=== PATIENT | male | born 1955 | race Caucasian/White ===

== ENCOUNTER 2023-03-29 14:52 | Inpatient (IN) | payer OTHER, SELFPAY ==
[2023-03-29 14:56] VITALS: BP 135/87; PULSE 66; RESP 16; TEMP 36.4; O2SAT 99; BMI 24.3
[2023-03-29 15:52] LABS: Basophils # 0.1 10^3/uL (0.0-0.1); Basophils % 0.9 %; Eosinophils # 0.4 10^3/uL (0.0-0.8); Eosinophils % 6.2 %; Hematocrit 36.5 % (37-53); Lymphocytes # 1.8 10^3/uL (0.8-4.8); Lymphocytes % 26.9 %; Mean Corpuscular HGB Conc 33.4 g/dL (30-55); Mean Corpuscular Volume 92.6 fl (82-101); Mean Platelet Volume 10.2 fL (7.4-10.4); Monocytes # 0.5 10^3/uL (0.2-0.9); Monocytes % 7.7 %; Neutrophils # 3.85 10^3/uL (1.8-7.7); Neutrophils % 57.3 %; Nucleated Red Blood Cells % 0 %; Platelet Count 311 10^3/cmm (157-399); Red Blood Count 3.94 10^6/uL (3.85-5.65); Red Cell Distribution Width 12.5 % (12.1-15.1); White Blood Count 6.73 10^3/uL (3.29-11.43)
[2023-03-29 16:05] LABS: Anion Gap 12.9 (5-19); Blood Urea Nitrogen 16 mg/dL (8-23); Calcium 9.1 mg/dL (8.5-10.5); Carbon Dioxide 24 mmol/L (22-29); Chloride 109 mmol/L (98-107); Creatinine Clr Calc Pharmacy 66.9161; Glomerular Filtration Rate 66.4 mL/min (90-130); Glucose 99 mg/dL (65-115); Osmolality Calculated 295 mOsm/kg (285-295); Potassium 3.9 mmol/L (3.5-5.1); Sodium 142 mmol/L (136-145)
--- NOTE | 2023-03-29 16:36 | USR_ITS ---
PROCEDURE INFORMATION: Exam: US Duplex Right Lower Extremity Veins, Limited Exam date and time: 03/29/2023 4:59 PM Age: 68 years old Clinical indication: Other: Redness; Additional info: Redness/swelling/infection, also eval for fluid collection under anterior tibial wound TECHNIQUE: Imaging protocol: Real-time duplex ultrasound of the right extremity with 2-D latif scale, color Doppler flow and spectral waveform analysis including responses to compression and other maneuvers (when performed) with image documentation. Limited exam was focused on the right lower extremity veins. COMPARISON: No relevant prior studies available. FINDINGS: Right deep veins: Unremarkable. The common femoral, femoral and popliteal veins as well as the visualized deep veins of the lower leg are patent without thrombus. Normal Doppler waveforms. Normal compressibility and/or augmentation response. Superficial veins: Unremarkable. Saphenofemoral junction is patent without thrombus. Soft tissues: The area of the anterior tibial wound is unremarkable demonstrating no fluid collection. US/[place] [id number] IMPRESSION: 1. No evidence of deep vein thrombosis. 2. No fluid collection in the anterior tibial region.
--- NOTE | 2023-03-29 16:36 | XRR_ITS ---
PROCEDURE INFORMATION: Exam: XR Right Tibia and Fibula Exam date and time: 03/29/2023 5:19 PM Age: 68 years old Clinical indication: Cellulitis; Lower leg; Right; Additional info: Poss injury/anterior infection TECHNIQUE: Imaging protocol: Radiologic exam of the right tibia and fibula. Views: 2 views. COMPARISON: [place] [id number] 03/29/2023 4:59 PM FINDINGS: Bones/joints: Normal. Soft tissues: Normal. XR/XR tibia fibula RT 2V [id number] IMPRESSION: No acute findings.
--- NOTE | 2023-03-29 16:37 | W.ED.EXTPRO ---
Documented by User: VELVET Hobson 03/30/23 09:01 HPI - Extremity Problem General: Chief complaint: Extremity Injury, Lower Stated complaint: cellulitis right lower leg Time Seen by Provider: 03/29/23 15:54 Source: patient and family (daughter) Mode of arrival: wheelchair Limitations: no limitations History of Present Illness: Patient is a nice 68-year-old male who presents to ED today along with his daughter for concerns of cellulitis to his right lower extremity. Daughter states patient lives at [facility]. She states patient was placed on doxycycline 7 days ago (written for a 10-day course) and states since that time leg has continued to worsen. Patient is reporting fevers although he was afebrile upon arrival to the emergency department. Daughter states he has a wound to his anterior right lower leg that she believes he sustained around the time that the infection started. Daughter is concerned this could be a spider bite although thinks patient could have possibly ran into something. Patient himself seems to have some mild baseline dementia. Daughter states he is at his mental baseline. MD Complaint: extremity pain and extremity swelling Onset (ago): day(s) Pain Consistency: constant Location: right and lower extremity Radiation: none Relieving factors: nothing Exacerbating factors: nothing Associated symptoms: Reports fever(s); Deny chest pain Review of Systems Const: Reports: fever(s); Denies: chills, body aches, fatigue or malaise Card: Denies: chest pain Resp: Denies: dyspnea Musc: Reports: extremity pain and extremity swelling; Denies: neck pain, back pain, joint pain or joint swelling Skin/Breast: Reports: other (wound to R anterior leg) Neuro: Denies: numbness in extremities or sensory changes [facility] ED PFSH: Medical History (Updated 03/29/23 @ 17:37 by Og Sawyer MD) History of seizures Surgical History (Updated 03/29/23 @ 17:37 by Og Sawyer MD) History of cerebral aneurysm repair Family History (Updated 03/29/23 @ 17:38 by Og Sawyer MD) Other No pertinent family history Social History (Updated 03/29/23 @ 17:38 by Og Sawyer MD) Smoking and tobacco/nicotine status: former use of tobacco/nicotine Alcohol intake: never Substance/Drug Use: former Former substance use details: Marijuana Physical Exam Const: COMMON NORMALS: no acute distress, average body habitus, no limitations, healthy appearing, alert and well nourished Resp: COMMON NORMALS: normal respiratory effort and clear to auscultation bilaterally AUSCULTATION: clear to auscultation bilaterally Cardio: COMMON NORMALS: regular rate and regular rhythm RATE: regular rate RHYTHM: regular rhythm Extremity: COMMON NORMALS: full ROM and capillary refill normal GENERAL: Yes normal exam except as noted RIGHT LOWER EXTREMITY: Yes lower leg OTHER: Patient has extensive erythema, warmth, and pitting edema affecting R lower extremity. Clinical findings start just distal to the knee and just proximal to the ankle. Neither joint is clinically affected. Patient has a 1.5-2.0 inch wound to his mid anterior tibia that is hemorrhagic/ulcerative in appearance. There is no active drainage or odor noted. There is no lymphangitic streaking to the extremity. DP/PT pulses normal with normal cap refill. Sensation appears intact. Neuro: COMMON NORMALS: moves all extremities, no focal motor deficits and no sensory deficits noted SENSORIUM/ORIENTATION: Yes alert Course ED course: Care will be transferred to Dr. Diaz as he will be an admit for failed outpatient therapy of cellulitis. ES Vital Signs: Vital signs: Vital Signs Temperature 97.5 F L 03/30/23 08:00 Pulse Rate 74 03/30/23 08:00 Respiratory Rate 22 H 03/30/23 08:00 Blood Pressure 132/85 03/30/23 08:00 Pulse Oximetry 97 03/30/23 08:00 Oxygen Delivery Me thod Room Air 03/30/23 08:00 MDM - Extremity (Nontraumatic) Lab Data 03/30/23 05:32 03/29/23 15:42 Radiology Impressions Tibia/Fibula X-Ray 03/29/23 16:36 IMPRESSION: No acute findings. Venous Duplex 03/29/23 16:36 IMPRESSION: 1. No evidence of deep vein thrombosis. 2. No fluid collection in the anterior tibial region. Laboratory Results WBC 6.73 10^3/uL (3.29-11.43) 03/29/23 15:42 RBC 3.94 10^6/uL (3.85-5.65) 03/29/23 15:42 Hgb 12.20 g/dL (11.27-16.99) 03/29/23 15:42 Hct 36.5 % (37-53) L 03/29/23 15:42 MCV 92.6 fl (82-101) 03/29/23 15:42 MCH 31.0 pg (27-33) 03/29/23 15:42 MCHC 33.4 g/dL (30-55) 03/29/23 15:42 RDW 12.5 % (12.1-15.1) 03/29/23 15:42 Plt Count 311 10^3/cmm (157-399) 03/29/23 15:42 MPV 10.2 fL (7.4-10.4) 03/29/23 15:42 Neut % (Auto) 57.3 % 03/29/23 15:42 Lymph % (Auto) 26.9 % 03/29/23 15:42 [place] % (Auto) 7.7 % 03/29/23 15:42 Eos % (Auto) 6.2 % 03/29/23 15:42 Baso % (Auto) 0.9 % 03/29/23 15:42 Neut # (Auto) 3.85 10^3/uL (1.8-7.7) 03/29/23 15:42 Lymph # (Auto) 1.8 10^3/uL (0.8-4.8) 03/29/23 15:42 [place] # (Auto) 0.5 10^3/uL (0.2-0.9) 03/29/23 15:42 Eos # (Auto) 0.4 10^3/uL (0.0-0.8) 03/29/23 15:42 Baso # (Auto) 0.1 10^3/uL (0.0-0.1) 03/29/23 15:42 Nucleated RBC % (auto) 0 % 03/29/23 15:42 Nucleated RBCs # 0.0 /100WBC 03/29/23 15:42 ESR 9 mm/hr (0-10) 03/29/23 15:42 Sodium 142 mmol/L (136-145) 03/29/23 15:42 Potassium 3.9 mmol/L (3.5-5.1) 03/29/23 15:42 Chloride 109 mmol/L (98-107) H 03/29/23 15:42 Carbon Dioxide 24 mmol/L (22-29) 03/29/23 15:42 Anion Gap 12.9 (5-19) 03/29/23 15:42 BUN 16 mg/dL (8-23) 03/29/23 15:42 Creatinine 1.1 mg/dL (0.7-1.2) 03/29/23 15:42 GFR Calculation 66.4 mL/min (90-130) L 03/29/23 15:42 Glucose 99 mg/dL (65-115) 03/29/23 15:42 Estimat Average Glucose 103 03/29/23 15:42 Hemoglobin A1c 5.2 % (4.0-6.0) 03/29/23 15:42 Calculated Osmolality 295 mOsm/kg (285-295) 03/29/23 15:42 Calcium 9.1 mg/dL (8.5-10.5) 03/29/23 15:42 C-Reactive Protein 46.0 mg/L (0.0-4.9) H 03/29/23 15:42 Triglycerides 59 mg/dL (0-150) 03/29/23 15:42 Cholesterol 137 mg/dL (0-200) 03/29/23 15:42 LDL Cholesterol, Calc 84 mg/dL (50-129) 03/29/23 15:42 HDL Cholesterol 41 mg/dL (60-100) L 03/29/23 15:42 LDL/HDL Ratio 2.05 RATIO (0.00-3.22) 03/29/23 15:42 Cholesterol/HDL Ratio 3.34 mg/dL (1.0-5.00) 03/29/23 15:42 Procalcitonin 0.03 ng/mL (0-0.5) 03/29/23 15:42 TSH 0.43 uIU/mL (0.27-4.20) 03/29/23 15:42 Discharge Plan Discharge Patient Disposition: Admitted As Inpatient Admit Provider: Og Sawyer Clinical Impression: Cellulitis of right lower extremity Condition: Stable Coding Level of Care Code ED Store Sales Manager for Chg Fwd Documented by User: Cooper Diaz MD 03/29/23 17:27 HPI - Extremity Problem General: Chief complaint: Extremity Injury, Lower Stated complaint: cellulitis right lower leg Time Seen by Provider: 03/29/23 15:54 PFSH ED PFSH: Medical History (Updated 03/29/23 @ 17:37 by Og Sawyer MD) History of seizures Surgical History (Updated 03/29/23 @ 17:37 by Og Sawyer MD) History of cerebral aneurysm repair Family History (Updated 03/29/23 @ 17:38 by Og Sawyer MD) Other No pertinent family history Social History (Updated 03/29/23 @ 17:38 by Og Sawyer MD) Smoking and tobacco/nicotine status: former use of tobacco/nicotine Alcohol intake: never Substance/Drug Use: former Former substance use details: Marijuana Course Vital Signs: Vital signs: Vital Signs Temperature 97.5 F L 03/30/23 08:00 Pulse Rate 74 03/30/23 08:00 Respiratory Rate 22 H 03/30/23 08:00 Blood Pressure 132/85 03/30/23 08:00 Pulse Oximetry 97 03/30/23 08:00 Oxygen Delivery Me thod Room Air 03/30/23 08:00 MDM - Extremity (Nontraumatic) Medical Decision Making I saw patient with midlevel does have a cellulitis is failed outpatient treatment spoke to hospitalist will admit at this time. Medical Records I reviewed the patient's medical records. Lab Data I reviewed the patient's lab results. 03/30/23 05:32 03/29/23 15:42 Radiology Impressions Tibia/Fibula X-Ray 03/29/23 16:36 IMPRESSION: No acute findings. Venous Duplex 03/29/23 16:36 IMPRESSION: 1. No evidence of deep vein thrombosis. 2. No fluid collection in the anterior tibial region. Laboratory Results WBC 6.73 10^3/uL (3.29-11.43) 03/29/23 15:42 RBC 3.94 10^6/uL (3.85-5.65) 03/29/23 15:42 Hgb 12.20 g/dL (11.27-16.99) 03/29/23 15:42 Hct 36.5 % (37-53) L 03/29/23 15:42 MCV 92.6 fl (82-101) 03/29/23 15:42 MCH 31.0 pg (27-33) 03/29/23 15:42 MCHC 33.4 g/dL (30-55) 03/29/23 15:42 RDW 12.5 % (12.1-15.1) 03/29/23 15:42 Plt Count 311 10^3/cmm (157-399) 03/29/23 15:42 MPV 10.2 fL (7.4-10.4) 03/29/23 15:42 Neut % (Auto) 57.3 % 03/29/23 15:42 Lymph % (Auto) 26.9 % 03/29/23 15:42 [place] % (Auto) 7.7 % 03/29/23 15:42 Eos % (Auto) 6.2 % 03/29/23 15:42 Baso % (Auto) 0.9 % 03/29/23 15:42 Neut # (Auto) 3.85 10^3/uL (1.8-7.7) 03/29/23 15:42 Lymph # (Auto) 1.8 10^3/uL (0.8-4.8) 03/29/23 15:42 [place] # (Auto) 0.5 10^3/uL (0.2-0.9) 03/29/23 15:42 Eos # (Auto) 0.4 10^3/uL (0.0-0.8) 03/29/23 15:42 Baso # (Auto) 0.1 10^3/uL (0.0-0.1) 03/29/23 15:42 Nucleated RBC % (auto) 0 % 03/29/23 15:42 Nucleated RBCs # 0.0 /100WBC 03/29/23 15:42 ESR 9 mm/hr (0-10) 03/29/23 15:42 Sodium 142 mmol/L (136-145) 03/29/23 15:42 Potassium 3.9 mmol/L (3.5-5.1) 03/29/23 15:42 Chloride 109 mmol/L (98-107) H 03/29/23 15:42 Carbon Dioxide 24 mmol/L (22-29) 03/29/23 15:42 Anion Gap 12.9 (5-19) 03/29/23 15:42 BUN 16 mg/dL (8-23) 03/29/23 15:42 Creatinine 1.1 mg/dL (0.7-1.2) 03/29/23 15:42 GFR Calculation 66.4 mL/min (90-130) L 03/29/23 15:42 Glucose 99 mg/dL (65-115) 03/29/23 15:42 Estimat Average Glucose 103 03/29/23 15:42 Hemoglobin A1c 5.2 % (4.0-6.0) 03/29/23 15:42 Calculated Osmolality 295 mOsm/kg (285-295) 03/29/23 15:42 Calcium 9.1 mg/dL (8.5-10.5) 03/29/23 15:42 C-Reactive Protein 46.0 mg/L (0.0-4.9) H 03/29/23 15:42 Triglycerides 59 mg/dL (0-150) 03/29/23 15:42 Cholesterol 137 mg/dL (0-200) 03/29/23 15:42 LDL Cholesterol, Calc 84 mg/dL (50-129) 03/29/23 15:42 HDL Cholesterol 41 mg/dL (60-100) L 03/29/23 15:42 LDL/HDL Ratio 2.05 RATIO (0.00-3.22) 03/29/23 15:42 Cholesterol/HDL Ratio 3.34 mg/dL (1.0-5.00) 03/29/23 15:42 Procalcitonin 0.03 ng/mL (0-0.5) 03/29/23 15:42 TSH 0.43 uIU/mL (0.27-4.20) 03/29/23 15:42 XR interpretation done by ED provider, pending radiology final review Discharge Plan Discharge Patient Disposition: Admitted As Inpatient Admit Provider: Og Sawyer Clinical Impression: Cellulitis of right lower extremity Condition: Stable Coding Level of Care Code ED Store Sales Manager for Chris Cruz
[2023-03-29 17:01] LABS: Erythrocyte Sedimentation Rate 9 mm/hr (0-10)
[2023-03-29] MEDS: vancomycin 1,000 MG in sodium chloride 0.9% 250 ML 250 MG IV (17:14)
--- NOTE | 2023-03-29 17:33 | P.HP_ITS ---
Providers/Chief Complaint Chief Complaint: cellulitis right lower leg History of Present Illness Russell Hernandez is a 68 year old male with a past medical history of seizures, history of cerebral aneurysms status post surgical intervention, who presents [facility] due to cellulitis of the right mcintosh. Patient tells me that he does not know how the cellulitis arose, he tells me he thinks he bumped it up against something he is not sure, he tells me that he is run several mar athon, and he was running at that time he thinks he might of bumped it up against something, but again he is actually he is not sure what it was, denies any cat bites no dog bites, he tells me over the next few days, the area started to become more red, hot, more swollen, more tender to touch, denies any fevers, no chills Review of Systems Const: Denies: fever(s) or chills Card: Denies: chest pain Resp: Denies: dyspnea GI: Denies: abdominal pain Musc: Reports: extremity pain and extremity swelling; Denies: neck pain or back pain Skin/Breast: Denies: rash Medications/Allergies Allergies Allergy/AdvReac Type Severity Reaction Status Date / Time carbamazepine [From Tegretol] Allergy ADR-Nausea Verified 03/29/23 14:56 phenytoin [From Dilantin] Allergy ADR-Nausea Verified 03/29/23 14:56 PFSH Acute PFSH: Medical History (Updated 03/29/23 @ 17:37 by Og Sawyer MD) History of seizures Surgical History (Updated 03/29/23 @ 17:37 by Og Sawyer MD) History of cerebral aneurysm repair Family History (Updated 03/29/23 @ 17:38 by Og Sawyer MD) Other No pertinent family history Social History (Updated 03/29/23 @ 17:38 by Og Sawyer MD) Smoking and tobacco/nicotine status: former use of tobacco/nicotine Alcohol intake: never Substance/Drug Use: former Former substance use details: Marijuana Vitals/I&O/Wt Last Vital Signs Temp 97.5 F L 03/29/23 14:56 Pulse 66 03/29/23 14:56 Resp 16 03/29/23 14:56 BP 135/87 03/29/23 14:56 Pulse Ox 99 03/29/23 14:56 O2 Del Method Room Air 03/29/23 14:56 Weight last 48 hrs Weight 77.111 kg Physical Exam Const: COMMON NORMALS: no acute distress, healthy appearing and alert GENERAL APPEARANCE: cooperative ORIENTATION/CONSCIOUSNESS: Yes awake, Yes oriented to person and Yes oriented to place; not oriented to time HENMT: COMMON NORMALS: normocephalic HEAD & SCALP: normocephalic Eye: COMMON NORMALS: Equal, round and reactive pupils present and EOMs intact bilaterally OTHER: Scar over left pentecostalism Neck/C-Spine: COMMON NORMALS: full ROM Resp: COMMON NORMALS: normal respiratory effort, No retractions, No use of accessory muscles and clear to auscultation bilaterally AUSCULTATION: clear to auscultation bilaterally Cardio: COMMON NORMALS: regular rate, regular rhythm, S1 normal heart sound present and S2 normal heart sound present RATE: regular rate RHYTHM: regular rhythm HEART SOUNDS: S1 normal heart sound present and S2 normal heart sound present GI: COMMON NORMALS: Normal to inspection, nondistended, normoactive bowel sounds present, Soft to palpation and non-tender Extremity: COMMON NORMALS: no pedal edema Neuro: COMMON NORMALS: CN's II-XII intact bilaterally, moves all extremities and no focal motor deficits Psych: COMMON NORMALS: mental status grossly normal Skin: NARRATIVE SKIN EXAM: Right lower extremity, area of erythema, swelling, tenderness, right mcintosh, with open area of wound, measuring 1 x 1 cm, no active drainage, no palpable density, with erythema surrounding area measuring 5 x 5 cm, irregular borders Data 03/29/23 15:42 03/29/23 15:42 Micro: Microbiology 03/29/23 17:03 Blood Culture - Preliminary Blood SPECIMEN COLLECTED 03/29/23 16:54 Blood Culture - Preliminary Blood SPECIMEN COLLECTED A&P Assessment and plan (1) Cellulitis of right lower extremity: Plan Cellulitis of right lower extremity ? Cultures at facility showed MRSA ? Failure of doxycycline as outpatient ? We will do venous ultrasound to rule out DVT ? CRP, Pro-Edgar, x-ray of lower extremity ordered ? Start vancomycin ? Rocephin ?, Monitor site, ? Wound care ? Blood cultures ? Full code, ? DVT prophylaxis Lovenox Attestations Medical Necessity Statement*: Patient requires hospitalization, inpatient, greater than 2 minutes, for cellulitis right lower extremity, with wound Coding Level of Care Code Acute Code for Chg Fwd Diagnoses Cellulitis of right lower extremity L03.115
[2023-03-29 18:20] LABS: Procalcitonin 0.03 ng/mL (0-0.5)
[2023-03-29 18:21] VITALS: BP 152/86; PULSE 52; RESP 19; TEMP 36.2; O2SAT 96
[2023-03-29] MEDS: cefTRIAXone 1,000 MG in sodium chloride 0.9% (plus) 50 ML 100 MG IV (18:46)
[2023-03-29] MEDS: pantoprazole 40 mg SDV IVP (18:47)
[2023-03-29] MEDS: levETIRAcetam 500 mg Tablet 1500 MG PO (18:47)
[2023-03-29] MEDS: lacosamide 50 mg Tablet 200 MG PO (18:47)
[2023-03-29] MEDS: sodium chloride 1 gm Tablet PO (18:47)
[2023-03-29] MEDS: OLANZapine 5 mg TABLET 2.5 MG PO (18:48)
[2023-03-29] MEDS: lactulose oral liq 20 gm/30 mL UDC 30 GM PO (18:48)
[2023-03-29] MEDS: enoxaparin 40 mg/0.4 mL Syringe SUBCUT (18:49)
[2023-03-29 20:00] VITALS: BP 127/65; PULSE 63; RESP 18; TEMP 36.5; O2SAT 98
[2023-03-29] MEDS: mirtazapine 15 mg Tablet PO (20:04)
[2023-03-29] MEDS: zonisamide 100 MG Capsule 300 MG PO (20:05)
[2023-03-29 20:08] LABS: Chol HDL Ratio 3.34 mg/dL (1.0-5.00); Cholesterol 137 mg/dL (0-200); HDL Cholesterol 41 mg/dL (60-100); LDL Cholesterol Calculated 84 mg/dL (50-129); LDL HDL Ratio 2.05 RATIO (0.00-3.22); Thyroid Stimulating Hormone 0.43 uIU/mL (0.27-4.20); Triglycerides 59 mg/dL (0-150)
[2023-03-29 20:17] LABS: Estmated Average Glucose 103; Hemoglobin A1C 5.2 % (4.0-6.0)
[2023-03-29 23:44] VITALS: BP 128/71; PULSE 78; RESP 16; TEMP 36.6; O2SAT 97
[2023-03-30] MEDS: OLANZapine 5 mg TABLET 2.5 MG PO ×3 (01:33→18:56)
[2023-03-30 03:54] VITALS: BP 129/84; PULSE 69; RESP 16; TEMP 36.5; O2SAT 96
[2023-03-30] MEDS: vancomycin 1,250 MG/250 ML PIGGYBACK 250 MG IV ×2 (04:21→23:03)
[2023-03-30 05:43] LABS: Basophils # 0.1 10^3/uL (0.0-0.1); Basophils % 0.8 %; Eosinophils # 0.4 10^3/uL (0.0-0.8); Eosinophils % 6.9 %; Hematocrit 35.6 % (37-53); Lymphocytes # 1.3 10^3/uL (0.8-4.8); Lymphocytes % 22.6 %; Mean Corpuscular HGB Conc 33.7 g/dL (30-55); Mean Corpuscular Hemoglobin 31.4 pg (27-33); Mean Corpuscular Volume 93.2 fl (82-101); Monocytes # 0.5 10^3/uL (0.2-0.9); Monocytes % 8.3 %; Neutrophils # 3.56 10^3/uL (1.8-7.7); Neutrophils % 60.2 %; Nucleated Red Blood Cells % 0 %; Platelet Count 276 10^3/cmm (157-399); Red Blood Count 3.82 10^6/uL (3.85-5.65); Red Cell Distribution Width 12.4 % (12.1-15.1); White Blood Count 5.92 10^3/uL (3.29-11.43)
[2023-03-30 06:05] LABS: Magnesium 2.1 mg/dL (1.7-2.3)
[2023-03-30 08:00] VITALS: BP 132/85; PULSE 74; RESP 22; TEMP 36.4; O2SAT 97
[2023-03-30] MEDS: sodium chloride 1 gm Tablet PO ×2 (08:57→18:56)
[2023-03-30] MEDS: lacosamide 50 mg Tablet 200 MG PO ×2 (08:57→18:56)
[2023-03-30] MEDS: thiamine 100 mg Tablet PO (08:57)
[2023-03-30] MEDS: levETIRAcetam 500 mg Tablet 1500 MG PO ×2 (08:57→18:56)
[2023-03-30] MEDS: finasteride 5 mg Tablet PO (08:57)
[2023-03-30] MEDS: lactulose oral liq 20 gm/30 mL UDC 30 GM PO ×2 (08:57→18:56)
[2023-03-30] MEDS: folic acid 1 mg Tablet PO (08:57)
--- NOTE | 2023-03-30 10:58 | PC.CHAP ---
Pastoral Care Encounter/Spiritual Assessment Type of Contact [] Declined dormitory maid visit [] Patient/Family/Request visit [] Outpatient visit [] Follow-up visit [] Physician referral [] Code/Alert [x] Routine visit [] Staff referral [] Actively dying [] Patient sleeping [] Family support [] [] Out of room [] Palliative care [] [] Receiving care in room [] Pre-surgical visit [] Trauma [] Long length of stay [] ICU visit [] Other: Relational/Emotional Strength [] Patient feels connected with others/family/visitors/staff [] Distress [] Loneliness/isolation [] Abandonment Spirituality of Patient [] Person of Monisha [] Attends Mormonism of their Monisha [] Believes in Prayer [] Reads Bible or Worship materials [] There are Spiritual issues to be addressed [place] Interventions [x] Prayer [] Active listening [] Non-anxious presence [] Spiritual/emotional support [] Crisis/trauma care [] Spiritual counseling [] Bereavement support [] Provided bereavement packet [] Provided Bible/devotional materials [] Provided toy/stuffed animal, coloring book to patient or family member [] Provided Communion [] Anointing/[place] [] Salvation [] Completed spiritual assessment [] Other: Impact on Illness or Injury [] Angry [] Fearful [] Anxious [] Often cries [] Exhaustion [] Unable to work [] Unable to attend latter day [] Unable to walk/stand [] Unable to read [] Unable to drive [] Unable to eat/drink [] Unable to sleep [] Unable to be with family [] Patient intubated [] Other: Summary Time spent with patient 10 min
--- NOTE | 2023-03-30 11:31 | PC.OT ---
OT EVALUATION ORDERS RECEIVED. SCREEN COMPLETED. PATIENT DEMONSTRATES NO DEFICITS IN ADL/MRADL. NO FURTHER SKILLED OT REQUIRED AT THIS TIME.
[2023-03-30 13:15] VITALS: BP 129/87; PULSE 58; RESP 20; TEMP 36.5; O2SAT 99
--- NOTE | 2023-03-30 15:05 | P.PN_ITS ---
Subjective Subjective: Patient was seen this morning, denies any fevers, chills, does complain of leg swelling, venous ultrasound negative for DVT, he is ambulatory around the room Vitals/I&O/Wt Last Vital Signs Temp 97.7 F 03/30/23 13:15 Pulse 58 L 03/30/23 13:15 Resp 20 H 03/30/23 13:15 BP 129/87 03/30/23 13:15 Pulse Ox 99 03/30/23 13:15 O2 Del Method Room Air 03/30/23 13:15 03/30/23 03/30/23 03/30/23 06:59 14:59 22:59 Intake Total 250 / 790 960 / 960 Balance 250 / 790 960 / 960 Weight last 48 hrs Weight 77.111 kg Physical Exam Const: COMMON NORMALS: no acute distress and patient oriented x3 Resp: COMMON NORMALS: normal respiratory effort, No retractions, No use of accessory muscles and clear to auscultation bilaterally AUSCULTATION: clear to auscultation bilaterally Cardio: COMMON NORMALS: regular rate, regular rhythm, S1 normal heart sound present and S2 normal heart sound present RATE: regular rate RHYTHM: regular rhythm HEART SOUNDS: S1 normal heart sound present and S2 normal heart sound present GI: COMMON NORMALS: Normal to inspection, nondistended, normoactive bowel sounds present Extremity: COMMON NORMALS: no pedal edema NARRATIVE EXTREMITY EXAM: Lower extremity wrapped Neuro: COMMON NORMALS: patient oriented x3 Psych: COMMON NORMALS: mental status grossly normal Data 03/30/23 05:32 03/29/23 15:42 Micro: Microbiology 03/29/23 17:03 Blood Culture - Preliminary Blood SPECIMEN COLLECTED 03/29/23 16:54 Blood Culture - Preliminary Blood SPECIMEN COLLECTED A&P Assessment and plan (1) Cellulitis of right lower extremity: Plan Cellulitis of right lower extremity ? Cultures at facility showed MRSA ? Failure of doxycycline as outpatient ? Venous ultrasound negative for DVT ? CRP 46, Pro-Edgar within normal limits ? Continue vancomycin ? Rocephin ?, Monitor site, ? Wound care ? Blood cultures ? Full code, ? DVT prophylaxis Lovenox Plan for today monitor wound, continue IV antibiotics for least 48 hours, plan on discharging tomorrow Attestations Medical Necessity Statement*: Patient requires hospitalization for cellulitis right lower extremity Diagnoses Cellulitis of right lower extremity L03.115
[2023-03-30 15:52] VITALS: BP 115/79; PULSE 58; RESP 20; TEMP 36.5; O2SAT 98
[2023-03-30] MEDS: pantoprazole DR 40 mg Tablet PO (18:56)
[2023-03-30] MEDS: enoxaparin 40 mg/0.4 mL Syringe SUBCUT (18:57)
[2023-03-30] MEDS: cefTRIAXone 1,000 MG in sodium chloride 0.9% (plus) 50 ML 100 MG IV (18:57)
[2023-03-30 19:18] VITALS: BP 119/80; PULSE 60; RESP 16; TEMP 36.8; O2SAT 97
[2023-03-30] MEDS: mirtazapine 15 mg Tablet PO (20:38)
[2023-03-30] MEDS: zonisamide 100 MG Capsule 300 MG PO (20:38)
[2023-03-30 23:59] VITALS: BP 121/75; PULSE 59; RESP 16; TEMP 36.6; O2SAT 95
[2023-03-31] MEDS: OLANZapine 5 mg TABLET 2.5 MG PO ×3 (02:07→17:44)
[2023-03-31 04:00] VITALS: BP 134/81; PULSE 68; RESP 18; TEMP 36.6; O2SAT 98
[2023-03-31 04:45] LABS: Basophils # 0.1 10^3/uL (0.0-0.1); Basophils % 0.5 %; Eosinophils # 0.5 10^3/uL (0.0-0.8); Eosinophils % 4.1 %; Hematocrit 38.3 % (37-53); Lymphocytes # 0.7 10^3/uL (0.8-4.8); Lymphocytes % 6.4 %; Mean Corpuscular HGB Conc 33.2 g/dL (30-55); Mean Corpuscular Hemoglobin 30.5 pg (27-33); Mean Corpuscular Volume 91.8 fl (82-101); Monocytes # 0.6 10^3/uL (0.2-0.9); Monocytes % 5.2 %; Neutrophils # 9.17 10^3/uL (1.8-7.7); Nucleated Red Blood Cells % 0 %; Platelet Count 318 10^3/cmm (157-399); Red Blood Count 4.17 10^6/uL (3.85-5.65); Red Cell Distribution Width 12.3 % (12.1-15.1); White Blood Count 11.04 10^3/uL (3.29-11.43)
[2023-03-31 05:09] LABS: Anion Gap 16.1 (5-19); Blood Urea Nitrogen 16 mg/dL (8-23); Calcium 9.1 mg/dL (8.5-10.5); Carbon Dioxide 18 mmol/L (22-29); Chloride 112 mmol/L (98-107); Creatinine Clr Calc Pharmacy 81.7863; Glomerular Filtration Rate 83.7 mL/min (90-130); Glucose 112 mg/dL (65-115); Magnesium 2.1 mg/dL (1.7-2.3); Osmolality Calculated 296 mOsm/kg (285-295); Potassium 4.1 mmol/L (3.5-5.1); Sodium 142 mmol/L (136-145)
[2023-03-31 07:36] VITALS: BP 104/75; PULSE 69; RESP 17; TEMP 36.7; O2SAT 98
[2023-03-31] MEDS: folic acid 1 mg Tablet PO (09:35)
[2023-03-31] MEDS: finasteride 5 mg Tablet PO (09:35)
[2023-03-31] MEDS: pantoprazole DR 40 mg Tablet PO (09:36)
[2023-03-31] MEDS: sodium chloride 1 gm Tablet PO ×2 (09:36→17:01)
[2023-03-31] MEDS: lacosamide 50 mg Tablet 200 MG PO ×2 (09:36→17:01)
[2023-03-31] MEDS: thiamine 100 mg Tablet PO (09:36)
[2023-03-31] MEDS: levETIRAcetam 500 mg Tablet 1500 MG PO ×2 (09:36→17:01)
[2023-03-31 11:08] VITALS: BP 117/69; PULSE 81; RESP 16; O2SAT 97
--- NOTE | 2023-03-31 11:33 | P.DS_ITS ---
Discharge Providers Date of Admission: 03/29/23 17:40 Date of Discharge: March 31, 2023 Attending Provider at Admission: Og Sawyer MD Attending Provider at Discharge: Og Sawyer MD Diagnoses at Discharge Discharge Diagnosis (1) Cellulitis of right lower extremity: Status: Acute Reason for Visit Reason for Visit: cellulitis right lower leg Hospital Course Hospital Course Russell Hernandez is a 68 year old male with a past medical history of seizures, history of cerebral aneurysms status post surgical intervention, who presents [facility] due to cellulitis of the right mcintosh.? Patient tells me that he does not know how the cellulitis arose, he tells me he thinks he bumped it up against something he is not sure, he tells me that he is run several marathon, and he was running at that time he thinks he might of bumped it up against something, but again he is actually he is not sure what it was, denies any cat bites no dog bites, he tells me over the next few days, the area started to become more red, hot, more swollen, more tender to touch, denies any fevers, no chills Patient presented to [facility] for right mcintosh cellulitis, received broad-spectrum antibiotic therapy, overall area of cellulitis improved, discharged on 7 remaining days of doxycycline and Augmentin Right mcintosh, had a 1 x 1 cm area of open drainage, general surgery was consulted, status post incision and drainage of right leg abscess, discharged to care home facility with wound care instructions Physical Exam Const: COMMON NORMALS: no acute distress and patient oriented x3 Resp: COMMON NORMALS: normal respiratory effort, No retractions, No use of accessory muscles and clear to auscultation bilaterally AUSCULTATION: clear to auscultation bilaterally Cardio: COMMON NORMALS: regular rate, regular rhythm, S1 normal heart sound present and S2 normal heart sound present RATE: regular rate RHYTHM: regular rhythm HEART SOUNDS: S1 normal heart sound present and S2 normal heart sound present GI: COMMON NORMALS: Normal to inspection, nondistended, normoactive bowel sounds present and non-tender Extremity: COMMON NORMALS: no pedal edema Neuro: COMMON NORMALS: patient oriented x3 Psych: COMMON NORMALS: mental status grossly normal Discharge Data Studies Completed and Pending Completed Studies During Hospitalization Category Date Time Status XR tibia fibula RT 2V [id number] Stat Exams 03/29/23 16:36 Completed US venous duplex lower extremity RT [CV venous duplex Ultrasound 03/29/23 16:36 [place] [id number]] Stat Pending at discharge Category Date Time Status Basic Metabolic Panel AM LABS Lab 04/01/23 04:00 Ordered Basic Metabolic Panel AM LABS Lab 04/02/23 04:00 Ordered Blood Culture Stat Lab 03/29/23 17:03 Results Complete Blood Count w/Auto AM LABS Lab 04/01/23 04:00 Ordered Magnesium AM LABS Lab 04/01/23 04:00 Ordered Radiology Impressions Tibia/Fibula X-Ray 03/29/23 16:36 IMPRESSION: No acute findings. Venous Duplex 03/29/23 16:36 IMPRESSION: 1. No evidence of deep vein thrombosis. 2. No fluid collection in the anterior tibial region. Laboratory Results WBC 11.04 10^3/uL (3.29-11.43) 03/31/23 04:27 RBC 4.17 10^6/uL (3.85-5.65) 03/31/23 04:27 Hgb 12.70 g/dL (11.27-16.99) 03/31/23 04:27 Hct 38.3 % (37-53) 03/31/23 04:27 MCV 91.8 fl (82-101) 03/31/23 04:27 MCH 30.5 pg (27-33) 03/31/23 04:27 MCHC 33.2 g/dL (30-55) 03/31/23 04:27 RDW 12.3 % (12.1-15.1) 03/31/23 04:27 Plt Count 318 10^3/cmm (157-399) 03/31/23 04:27 MPV 10.0 fL (7.4-10.4) 03/31/23 04:27 Neut % (Auto) 83.0 % 03/31/23 04:27 Lymph % (Auto) 6.4 % 03/31/23 04:27 [place] % (Auto) 5.2 % 03/31/23 04:27 Eos % (Auto) 4.1 % 03/31/23 04:27 Baso % (Auto) 0.5 % 03/31/23 04:27 Neut # (Auto) 9.17 10^3/uL (1.8-7.7) H 03/31/23 04:27 Lymph # (Auto) 0.7 10^3/uL (0.8-4.8) L 03/31/23 04:27 [place] # (Auto) 0.6 10^3/uL (0.2-0.9) 03/31/23 04:27 Eos # (Auto) 0.5 10^3/uL (0.0-0.8) 03/31/23 04:27 Baso # (Auto) 0.1 10^3/uL (0.0-0.1) 03/31/23 04:27 Nucleated RBC % (auto) 0 % 03/31/23 04:27 Nucleated RBCs # 0.0 /100WBC 03/31/23 04:27 ESR 9 mm/hr (0-10) 03/29/23 15:42 Sodium 142 mmol/L (136-145) 03/31/23 04:27 Potassium 4.1 mmol/L (3.5-5.1) 03/31/23 04:27 Chloride 112 mmol/L (98-107) H 03/31/23 04:27 Carbon Dioxide 18 mmol/L (22-29) L 03/31/23 04:27 Anion Gap 16.1 (5-19) 03/31/23 04:27 BUN 16 mg/dL (8-23) 03/31/23 04:27 Creatinine 0.9 mg/dL (0.7-1.2) 03/31/23 04:27 GFR Calculation 83.7 mL/min (90-130) L 03/31/23 04:27 Glucose 112 mg/dL (65-115) 03/31/23 04:27 Estimat Average Glucose 103 03/29/23 15:42 Hemoglobin A1c 5.2 % (4.0-6.0) 03/29/23 15:42 Calculated Osmolality 296 mOsm/kg (285-295) H 03/31/23 04:27 Calcium 9.1 mg/dL (8.5-10.5) 03/31/23 04:27 Magnesium 2.1 mg/dL (1.7-2.3) 03/31/23 04:27 C-Reactive Protein 46.0 mg/L (0.0-4.9) H 03/29/23 15:42 Triglycerides 59 mg/dL (0-150) 03/29/23 15:42 Cholesterol 137 mg/dL (0-200) 03/29/23 15:42 LDL Cholesterol, Calc 84 mg/dL (50-129) 03/29/23 15:42 HDL Cholesterol 41 mg/dL (60-100) L 03/29/23 15:42 LDL/HDL Ratio 2.05 RATIO (0.00-3.22) 03/29/23 15:42 Cholesterol/HDL Ratio 3.34 mg/dL (1.0-5.00) 03/29/23 15:42 Procalcitonin 0.03 ng/mL (0-0.5) 03/29/23 15:42 TSH 0.43 uIU/mL (0.27-4.20) 03/29/23 15:42 Vitals Last Vital Signs Temp 98.0 F 03/31/23 07:36 Pulse 81 03/31/23 11:08 Resp 16 03/31/23 11:08 BP 117/69 03/31/23 11:08 Pulse Ox 97 03/31/23 11:08 O2 Del Method Room Air 03/31/23 11:08 Discharge Plan Discharge Patient Disposition: Xfer SNF Condition: Stable Prescriptions: New doxycycline hyclate 100 mg tablet 100 mg PO BID 7 Days Qty: 14 0RF amoxicillin-pot clavulanate 875-125 mg tablet 1 tab PO BID 7 Days Qty: 14 0RF lacosamide 200 mg tablet 200 mg PO BID 30 Days Qty: 60 0RF Continued acetaminophen 325 mg Tablet 650 mg PO QID PRN (Reason: Pain) melatonin 3 mg Tablet 6 mg PO BEDTIME Zyprexa 2.5 mg Tablet 2.5 mg PO TID zonisamide 100 mg Capsule 300 mg PO QPM Milk of Magnesia 400 mg/5 mL Suspension 30 ml PO DAILY PRN (Reason: Constipation) tamsulosin 0.4 mg Capsule 0.4 mg PO DAILY Dulcolax (bisacodyl) 10 mg Suppository 10 mg [place] DAILY PRN (Reason: Constipation) Dulcolax (bisacodyl) 5 mg Tablet,Delayed Release (Dr/Ec) 20 mg PO DAILY PRN (Reason: Constipation) mirtazapine 15 mg Tablet 15 mg PO QPM alum-mag hydroxide-simeth 200-200-20 mg/5 mL Suspension 30 ml PO QID PRN (Reason: Constipation) Rx Instructions: administer between meals and at bedtime sodium chloride 1,000 mg Tablet,Soluble 1,000 mg PO DAILY levetiracetam 1,000 mg Tablet 1,500 mg PO BID Vitamin D3 125 mcg (5,000 unit) Tablet 125 mcg PO Q7D Miralax 17 gram/dose Powder 4 g PO DAILY PRN (Reason: Constipation) finasteride 5 mg Tablet 5 mg PO DAILY dextran 70-hypromellose Drops 1 drp OPHTHALMIC (EYE) BID PRN (Reason: eye) Discharge Orders: Discharge Order (Routine); Ordered 04/01/23 Ordered By: Og Sawyer Referrals: [facility] [Outside] Discharge Diet: Cardiac Discharge Activity: Resume usual activity Patient Instructions: Opioid Safety Activity Restrictions/Additional Instructions: Daily dressing changes with half-inch plain packing and 4 x 4 gauze. Please take antibiotics as prescribed Discharge Attestations Time Spent in Discharge Care*: greater than 30 min Quality Metrics Clinical Quality Measures [ No reported AMI, CVA or VTE this stay] Coding Level of Care Code 42317 Total time (in minutes) for Discharge: 45 Diagnoses Cellulitis of right lower extremity L03.115
--- NOTE | 2023-03-31 14:58 | P.CONIM_ITS ---
Providers/Reason For Consult Consulting Physician/Specialty*: SHAHNAZ Delaney DO/General surgery Reason for Consult*: Right leg abscess Attending Physician: Og Sawyer MD History of Present Illness History of Present Illness Russell Hernandez is a 68 year old male who is only oriented to person secondary to a history of seizures and cerebral aneurysms, who presents to the hospital with cellulitis of his right leg. HPI and review of systems are limited secondary to patient's mental status. While in the hospital he developed sw elling to the area with fluctuance indicative of an abscess. General surgery was consulted for possible incision and drainage Review of Systems General: Reports: ROS unobtainable due to mental status Medications/Allergies Home Medications Medication Instructions Recorded Confirmed Last Taken Type acetaminophen 325 mg tablet 650 mg PO QID PRN Pain 03/30/23 03/30/23 Unknown History aluminum-mag hydroxide-simethicone 30 ml PO QID PRN Constipation 03/30/23 03/30/23 Unknown History 200 mg-200 mg-20 mg/5 mL oral susp bisacodyl 10 mg rectal suppository 10 mg SC DAILY PRN Constipation 03/30/23 03/30/23 Unknown History (Dulcolax (bisacodyl)) bisacodyl 5 mg tablet,delayed 20 mg PO DAILY PRN Constipation 03/30/23 03/30/23 Unknown History release (Dulcolax (bisacodyl)) cholecalciferol (vitamin D3) 125 125 mcg PO Q7D 03/30/23 03/30/23 Unknown History mcg (5,000 unit) tablet (Vitamin D3) dextran 70-hypromellose eye drops 1 drp ophthalmic (eye) BID PRN eye 03/30/23 03/30/23 Unknown History finasteride 5 mg tablet 5 mg PO DAILY 03/30/23 03/30/23 Unknown History levetiracetam 1,000 mg tablet 1,500 mg PO BID 03/30/23 03/30/23 Unknown History magnesium hydroxide 400 mg/5 mL 30 ml PO DAILY PRN Constipation 03/30/23 03/30/23 Unknown History oral suspension (Milk of Magnesia) melatonin 3 mg tablet 6 mg PO BEDTIME 03/30/23 03/30/23 Unknown History mirtazapine 15 mg tablet 15 mg PO QPM 03/30/23 03/30/23 Unknown History olanzapine 2.5 mg tablet (Zyprexa) 2.5 mg PO TID 03/30/23 03/30/23 Unknown History polyethylene glycol 3350 17 4 g PO DAILY PRN Constipation 03/30/23 03/30/23 Unknown History gram/dose oral powder (Miralax) sodium chloride 1,000 mg soluble 1,000 mg PO DAILY 03/30/23 03/30/23 Unknown History tablet tamsulosin 0.4 mg capsule 0.4 mg PO DAILY 03/30/23 03/30/23 Unknown History zonisamide 100 mg capsule 300 mg PO QPM 03/30/23 03/30/23 Unknown History amoxicillin 875 mg-potassium 1 tab PO BID 7 days #14 tabs 03/31/23 Unknown Rx clavulanate 125 mg tablet doxycycline hyclate 100 mg tablet 100 mg PO BID 7 days #14 tabs 03/31/23 Unknown Rx Allergies Allergy/AdvReac Type Severity Reaction Status Date / Time carbamazepine [From Tegretol] Allergy ADR-Nausea Verified 03/29/23 14:56 phenytoin [From Dilantin] Allergy ADR-Nausea Verified 03/29/23 14:56 Current Medications Generic Name Dose Route Start Last Admin Trade Name Freq PRN Reason Stop Dose Admin Enoxaparin Sodium 40 mg 03/29/23 18:18 03/30/23 18:57 Enoxaparin 40 Mg/0.4 Ml Syringe SUBCUT 40 mg Q24H CHUY Administration Finasteride 5 mg 03/30/23 09:00 03/31/23 09:35 Finasteride 5 Mg Tablet PO 5 mg DAILY CHUY Administration Folic Acid 1 mg 03/30/23 09:00 03/31/23 09:35 Folic Acid 1 Mg Tablet PO 1 mg DAILY CHUY Administration Ceftriaxone Sodium 1,000 mg/ 50 mls @ 100 mls/hr 03/29/23 18:18 03/30/23 19:41 Sodium Chloride IV Infused Q24H CHUY Infusion Protocol Vancomycin/PEG/NADA/Lysine/Water 1,250 mg in 250 mls @ 250 mls/hr 03/30/23 05:00 03/31/23 00:23 Vancocin IV Infused Q18H CHUY Infusion Lacosamide 200 mg 03/29/23 18:18 03/31/23 09:36 Lacosamide 50 Mg Tablet PO 200 mg BID CHUY Administration Lactulose 30 gm 03/29/23 18:18 03/31/23 09:36 Lactulose Oral Liq 20 Gm/30 Ml Udc PO Not Given BID CHUY Levetiracetam 1,500 mg 03/29/23 18:18 03/31/23 09:36 Levetiracetam 500 Mg Tablet PO 1,500 mg BID CHUY Administration Mirtazapine 15 mg 03/29/23 21:00 03/30/23 20:38 Mirtazapine 15 Mg Tablet PO 15 mg BEDTIME CHUY Administration Olanzapine 2.5 mg 03/29/23 18:18 03/31/23 09:36 Olanzapine 5 Mg Tablet PO 2.5 mg Q8H CHUY Administration Pantoprazole Sodium 40 mg 03/30/23 18:00 03/31/23 09:[address] 40 Mg Tablet PO 40 mg DAILY CHUY Administration Sodium Chloride 1 gm 03/29/23 18:18 03/31/23 09:36 Sodium Chloride 1 Gm Tablet PO 1 gm BID CHUY Administration Thiamine Mononitrate 100 mg 03/30/23 09:00 03/31/23 09:36 Thiamine 100 Mg Tablet PO 100 mg DAILY CHUY Administration Zonisamide 300 mg 03/29/23 21:00 03/30/23 20:38 Zonisamide 100 Mg Capsule PO 300 mg BEDTIME CHUY Administration PFSH Acute PFSH: Medical History History of seizures Surgical History History of cerebral aneurysm repair Family History Other No pertinent family history Social History Smoking and tobacco/nicotine status: former use of tobacco/nicotine Alcohol intake: never Substance/Drug Use: former Former substance use details: Marijuana Vitals/I&O/Wt Last Vital Signs Temp 98.0 F 03/31/23 07:36 Pulse 81 03/31/23 11:08 Resp 16 03/31/23 11:08 BP 117/69 03/31/23 11:08 Pulse Ox 97 03/31/23 11:08 O2 Del Method Room Air 03/31/23 11:08 03/30/23 03/31/23 03/31/23 22:59 06:59 14:59 Intake Total 530 / 1490 250 / 1740 720 / 720 Balance 530 / 1490 250 / 1740 720 / 720 Physical Exam Narrative: General : Patient is well developed , no acute distress, oriented only to person, not to time or place Head : Normal cephalic, a-traumatic. Ears : Pinnae and external canal are normal. Hearing is normal. Eyes : PERRLA, Sclera and injection are normal. No conjunctival discharge. Nose : Mucous membranes are without erythema. Throat : buccal mucosa is normal, gums are without significant recession or hypertrophy. Lungs : Equal chest rise bilaterally, no use of accessory muscles, trachea is midline. Cor : Rate and rhythm are normal. Abdomen : Soft, ND, NT, no g/r/m Extremities : No edema, no cyanosis or clubbing, dorsalis pedis pulses are present bilaterally, non-tender to palpation of calves. There is cellulitis to the anterior right leg with induration and fluctuance. Upper extremities are normal bilaterally. Back : non-tender to palpation, no CVA tenderness. Neuro : CN II - XII intact, Upper and lower extremities have equal and full strength Data 03/31/23 04:27 03/31/23 04:27 Micro: Microbiology 03/29/23 17:03 Blood Culture - Preliminary Blood NEGATIVE TO DATE 03/29/23 16:54 Blood Culture - Preliminary Blood NEGATIVE TO DATE A&P Assessment and plan (1) Abscess of right leg: Plan Incision and drainage of right leg abscess The risk and benefits of the procedure, including but not limited to, scar, numbness, pain, bleeding, recurrence, damage to surrounding structures, were explained to the patient's next of kin. They are understanding the risks and wish to proceed Coding Level of Care Code 77625 Diagnoses Abscess of right leg L02.415
--- NOTE | 2023-03-31 15:24 | PM.ACPR ---
Procedure/Consent Time out: Time Out Performed: Yes Consent: Consent for Procedure: Consent obtained from other (indicate) (DAUGHTER) Acute Procedures Abscess I/D: Site: lower extremity (RIGHT) Side (if applicable): right Sedation/analgesia: none Anesthetic used: lidocaine 1% Technique: other (Incised with a 15 blade) Amount of fluid (mL): 1 Packing used?: plain Epistaxis Control: Time out performed: Yes
[2023-03-31] MEDS: lidocaine 1% INJ 10 mL (per mL) 20 ML INJECTION (16:51)
[2023-03-31] MEDS: vancomycin 1,250 MG/250 ML PIGGYBACK 250 MG IV (17:00)
[2023-03-31] MEDS: enoxaparin 40 mg/0.4 mL Syringe SUBCUT (17:44)
--- NOTE | 2023-03-31 18:10 | PM.PN ---
Subjective Subjective: Patient was seen this morning, he continues to complain of drainage from his right chin, no fevers, no chills Vitals/I&O/Wt Last Vital Signs Temp 98.0 F 03/31/23 07:36 Pulse 81 03/31/23 11:08 Resp 16 03/31/23 11:08 BP 117/69 03/31/23 11:08 Pulse Ox 97 03/31/23 11:08 O2 Del Method Room Air 03/31/23 11:08 03/31/23 03/31/23 03/31/23 06:59 14:59 22:59 Intake Total 250 / 1740 720 / 720 490 / 1210 Balance 250 / 1740 720 / 720 490 / 1210 Physical Exam Const: COMMON NORMALS: no acute distress and patient oriented x3 Resp: COMMON NORMALS: normal respiratory effort, No retractions, No use of accessory muscles and clear to auscultation bilaterally AUSCULTATION: clear to auscultation bilaterally Cardio: COMMON NORMALS: regular rate, regular rhythm, S1 normal heart sound present and S2 normal heart sound present RATE: regular rate RHYTHM: regular rhythm HEART SOUNDS: S1 normal heart sound present and S2 normal heart sound present GI: COMMON NORMALS: Normal to inspection, nondistended, normoactive bowel sounds present and non-tender Extremity: COMMON NORMALS: no pedal edema Neuro: COMMON NORMALS: patient oriented x3 Psych: COMMON NORMALS: mental status grossly normal Skin: NARRATIVE SKIN EXAM: Right mcintosh, erythema has improved, open area of palpable induration Data 03/31/23 04:27 03/31/23 04:27 Micro: Microbiology 03/29/23 17:03 Blood Culture - Preliminary Blood NEGATIVE TO DATE 03/29/23 16:54 Blood Culture - Preliminary Blood NEGATIVE TO DATE A&P Assessment and plan (1) Cellulitis of right lower extremity: Plan Cellulitis of right lower extremity ? Cultures at facility showed MRSA ? Failure of doxycycline as outpatient ? Venous ultrasound negative for DVT ? CRP 46, Pro-Edgar within normal limits ? Continue vancomycin ? Rocephin ?, Monitor site, -Continues to have open area of induration spoke to Dr. Delaney, consult for debridement ? Wound care ? Blood cultures ? Full code, ? DVT prophylaxis Lovenox Plan for today monitor wound, continue IV antibiotics for least 24 hours, consult surgery for debridement, spoke to general surgery, spoke to patient, spouse and nursing staff Attestations Medical Necessity Statement*: Patient requires hospitalization for right lower extremity cellulitis, requiring IV antibiotics, requiring surgical consultation for debridement Diagnoses Cellulitis of right lower extremity L03.115
[2023-03-31 19:16] VITALS: BP 131/73; PULSE 50; RESP 16; TEMP 36.8; O2SAT 97
[2023-03-31] MEDS: cefTRIAXone 1,000 MG in sodium chloride 0.9% (plus) 50 ML 100 MG IV (20:09)
[2023-03-31] MEDS: zonisamide 100 MG Capsule 300 MG PO (20:14)
[2023-03-31] MEDS: mirtazapine 15 mg Tablet PO (20:14)
[2023-03-31 23:41] VITALS: BP 133/77; PULSE 64; RESP 16; TEMP 36.8; O2SAT 94
[2023-04-01] MEDS: OLANZapine 5 mg TABLET 2.5 MG PO ×2 (02:52→10:34)
[2023-04-01 03:33] VITALS: BP 119/81; PULSE 70; RESP 16; TEMP 36.8; O2SAT 96
[2023-04-01 06:27] LABS: Basophils # 0.1 10^3/uL (0.0-0.1); Basophils % 0.6 %; Eosinophils # 0.4 10^3/uL (0.0-0.8); Hematocrit 34.7 % (37-53); Lymphocytes # 1.2 10^3/uL (0.8-4.8); Mean Corpuscular HGB Conc 33.4 g/dL (30-55); Mean Corpuscular Hemoglobin 30.4 pg (27-33); Mean Corpuscular Volume 90.8 fl (82-101); Mean Platelet Volume 10.4 fL (7.4-10.4); Monocytes # 0.6 10^3/uL (0.2-0.9); Monocytes % 7.2 %; Neutrophils # 5.53 10^3/uL (1.8-7.7); Neutrophils % 71.7 %; Nucleated Red Blood Cells % 0 %; Platelet Count 316 10^3/cmm (157-399); Red Blood Count 3.82 10^6/uL (3.85-5.65); Red Cell Distribution Width 12.6 % (12.1-15.1); White Blood Count 7.73 10^3/uL (3.29-11.43)
[2023-04-01 06:42] LABS: Anion Gap 11.7 (5-19); Blood Urea Nitrogen 14 mg/dL (8-23); Calcium 8.7 mg/dL (8.5-10.5); Carbon Dioxide 21 mmol/L (22-29); Chloride 113 mmol/L (98-107); Glomerular Filtration Rate 95.8 mL/min (90-130); Glucose 105 mg/dL (65-115); Osmolality Calculated 295 mOsm/kg (285-295); Potassium 3.7 mmol/L (3.5-5.1); Sodium 142 mmol/L (136-145)
[2023-04-01 06:44] LABS: Magnesium 2.2 mg/dL (1.7-2.3)
[2023-04-01 07:25] LABS: SARS Covid-2 Antigen negative (Negative)
[2023-04-01 08:00] VITALS: BP 98/71; PULSE 67; RESP 16; TEMP 36.6; O2SAT 97
--- NOTE | 2023-04-01 10:04 | PC.SOCIAL ---
IMM Update pg 2 of IMM Updated and reviewed w/ patients daughter. Copy left @ bedside and copy dated, initialed and placed in chart.
[2023-04-01] MEDS: sodium chloride 1 gm Tablet PO (10:07)
[2023-04-01] MEDS: lacosamide 50 mg Tablet 200 MG PO (10:08)
[2023-04-01] MEDS: folic acid 1 mg Tablet PO (10:09)
[2023-04-01] MEDS: pantoprazole DR 40 mg Tablet PO (10:10)
[2023-04-01] MEDS: finasteride 5 mg Tablet PO (10:12)
[2023-04-01] MEDS: thiamine 100 mg Tablet PO (10:12)
[2023-04-01] MEDS: levETIRAcetam 500 mg Tablet 1500 MG PO (10:24)
[2023-04-01] MEDS: lactulose oral liq 20 gm/30 mL UDC 30 GM PO (10:25)
[2023-04-01 11:24] LABS: Vancomycin Trough 11.2 ug/mL (10-15)
[2023-04-01 11:52] VITALS: BP 98/71; PULSE 67; RESP 16; TEMP 36.6; O2SAT 97
== END 2023-04-01 11:15 | disposition skilled nursing facility (03) | DRG 603 ==
LOC: ER 16:58 → MEDSURG 17:48
PROVIDERS: Physician Assistant; Admitting Provider Family Medicine; Emergency Provider Emergency Medicine; Visit Provider Family Medicine
DX: L03.115 Cellulitis of right lower limb (principal); B95.62 Methicillin resistant Staphylococcus aureus infection as the cause of diseases classified elsewhere; Z87.891 Personal history of nicotine dependence
CPT/HCPCS: 36415; 73590; 80048; 80061; 80202; 83036; 83735; 84145; 84443; 85025; 85651; 86140; 87040; 87426; 93971; 96365; 96372; 99285; C9113; J0696; J1650; J3370; J7050